=== PATIENT | female | born 1985 | race Asian ===

== ENCOUNTER 2018-04-26 17:56 | Emergency (ER) | payer MEDICAID, OTHER ==
[~2018-04-26] VITALS: Ht 160 cm; Wt 56.8 kg
[~2018-04-26 17:56] MED LIST: BENZ1TAB10 PO; DIVA500T35 PO; LITH8SOL6 PO; RISP2 PO; RISP3 PO; VITAD1000 PO
[2018-04-26 18:46] LABS: BASOPHILS % (AUTO) 0.5 % (0.0-2.0); EOSINOPHILS % (AUTO) 1.4 % (1.0-6.0); HEMATOCRIT 39.3 % (36-46); HEMOGLOBIN 13.4 g/dL (12.0-16.0); LYMPHOCYTES # (AUTO) 1.1 K/uL (1.0-4.8); LYMPHOCYTES % (AUTO) 11.6 % (22.0-44.0); MEAN CORPUSCULAR HEMOGLOBIN 30.9 pg (26.0-34.0); MEAN CORPUSCULAR HGB CONC 34.1 G/dL (31.0-37.0); MEAN CORPUSCULAR VOLUME 91 fL (80-100); MONOCYTES # (AUTO) 0.7 K/uL (0.1-1.0); MONOCYTES % (AUTO) 7.1 % (2.0-9.0); NEUTROPHILS # (AUTO) 7.7 K/uL (1.8-7.7); NEUTROPHILS % (AUTO) 79.4 % (40.0-70.0); PLATELET COUNT (AUTO) 351 K/uL (150-450); RED BLOOD CELL COUNT(AUTO) 4.34 MIL/uL (4.00-5.20)
[2018-04-26 18:53] LABS: ANION GAP 7 mmol/L (8-16); CALCIUM, TOTAL 8.6 mg/dL (8.8-10.5); CARBON DIOXIDE 27 mmol/L (22-29); CHLORIDE 106 mmol/L (98-107); CREATININE 0.87 mg/dL (0.60-1.30); GLOMERULAR FILTR. RATE CALC > 60 mL/min (>60); GLUCOSE,RANDOM 92 mg/dL (70-110); SODIUM SERUM 140 mmol/L (136-145); UREA NITROGEN, BLOOD 19 mg/dL (7-18)
[2018-04-26 18:59] LABS: ALANINE AMINOTRANSFERASE 38 U/L (12-78); ALBUMIN 3.8 g/dL (3.4-5.0); ALKALINE PHOSPHATASE 79 U/L (46-116); ASPARTATE AMINOTRANSFERASE 21 U/L (15-37); BILIRUBIN,TOTAL 0.6 mg/dL (0.1-1.0); TOTAL PROTEIN, SERUM 7.7 g/dL (6.4-8.2)
[2018-04-26 20:32] LABS: VALPROIC ACID 4 mcg/mL (50-100)
[2018-04-27 04:32] VITALS: BP 118/73
== END 2018-04-27 05:42 | disposition home or self-care (01) ==
LOC: EMS 17:57
DX: S02.82XA Fracture of other specified skull and facial bones, left side, initial encounter for closed fracture (principal); F29 Unspecified psychosis not due to a substance or known physiological condition; F15.10 Other stimulant abuse, uncomplicated; Y35.811A Legal intervention involving manhandling, law enforcement official injured, initial encounter; Y93.89 Activity, other specified; Y92.89 Other specified places as the place of occurrence of the external cause; Y99.8 Other external cause status
CPT/HCPCS: 36415; 70450; 70486; 80053; 80164; 82962; 84703; 85025; 99285; G0480

== ENCOUNTER 2021-04-27 22:00 | Inpatient (IN) | payer MEDICARE, MEDICAID ==
[~2021-04-27] VITALS: Ht 160 cm; Wt 63.6 kg
[~2021-04-27 22:00] MED LIST changes: -BENZ1TAB10 PO; +DIVA-112 PO; -DIVA500T35 PO; -LITH8SOL6 PO; -RISP2 PO; -RISP3 PO; -VITAD1000 PO
[2021-04-27] MEDS ORDERED: HALOPERIDOL LACTATE 5 MG/ML VIAL IM ONE (22:45)
[2021-04-27] MEDS ORDERED: DiphenhydrAMINE HCL 50 MG/ML VIAL IM ONE (22:45)
[2021-04-27] MEDS ORDERED: LORazepam 2 MG/ML VIAL IM ONE (22:45)
[2021-04-27 22:52] LABS: BASOPHILS % (AUTO) 0.5 % (0.0-2.0); EOSINOPHILS % (AUTO) 0.6 % (1.0-6.0); HEMATOCRIT 40.8 % (36-46); HEMOGLOBIN 13.4 g/dL (12.0-16.0); LYMPHOCYTES # (AUTO) 1.8 K/uL (1.0-4.8); LYMPHOCYTES % (AUTO) 15.8 % (22.0-44.0); MEAN CORPUSCULAR HEMOGLOBIN 30.6 pg (26.0-34.0); MEAN CORPUSCULAR HGB CONC 32.8 G/dL (31.0-37.0); MEAN CORPUSCULAR VOLUME 93 fL (80-100); MONOCYTES # (AUTO) 0.8 K/uL (0.1-1.0); MONOCYTES % (AUTO) 7.4 % (2.0-9.0); NEUTROPHILS # (AUTO) 8.7 K/uL (1.8-7.7); NEUTROPHILS % (AUTO) 75.7 % (40.0-70.0); PLATELET COUNT (AUTO) 402 K/uL (150-450); RED BLOOD CELL COUNT(AUTO) 4.37 MIL/uL (4.00-5.20); RED CELL DISTRIBUTION WIDTH 13.3 % (11.5-14.5)
[2021-04-27] MEDS ORDERED: HALOPERIDOL 5 MG TABLET PO PRN (23:00)
[2021-04-27 23:02] LABS: ANION GAP 15 mmol/L (8-16); CALCIUM, TOTAL 9.3 mg/dL (8.8-10.5); CARBON DIOXIDE 21 mmol/L (22-29); CHLORIDE 103 mmol/L (98-107); CREATININE 1.23 mg/dL (0.60-1.30); GLOMERULAR FILTR. RATE CALC 50 mL/min (>60); GLUCOSE,RANDOM 89 mg/dL (70-110); POTASSIUM 4.1 mmol/L (3.5-5.1); SODIUM SERUM 139 mmol/L (136-145); UREA NITROGEN, BLOOD 17 mg/dL (7-18)
[2021-04-27 23:08] LABS: ALANINE AMINOTRANSFERASE 24 U/L (12-78); ALBUMIN 4.5 g/dL (3.4-5.0); ALKALINE PHOSPHATASE 88 U/L (46-116); ASPARTATE AMINOTRANSFERASE 18 U/L (15-37); TOTAL PROTEIN, SERUM 7.8 g/dL (6.4-8.2)
[2021-04-27 23:25] LABS: COVID AG,FIA SOURCE NASOPHARYNGEAL
[2021-04-27 23:37] LABS: VALPROIC ACID < 3 mcg/mL (50-100)
[2021-04-28 03:30] VITALS: BP 101/61
[2021-04-28 03:32] VITALS: BP 101/61
[2021-04-28] MEDS ORDERED: DOCUSATE SODIUM 100 MG CAPSULE PO PRN (06:30)
[2021-04-28] MEDS ORDERED: MAG HYDROX/AL HYDROX/SIMETH ES 30 ML SUSPENSION UDCUP PO PRN (06:30)
[2021-04-28] MEDS ORDERED: LOPERAMIDE HCL 2 MG CAPSULE PO PRN (06:30)
[2021-04-28] MEDS ORDERED: ONDANSETRON HCL 4 MG TABLET PO PRN (06:30)
[2021-04-28] MEDS ORDERED: CloNIDine HCL 0.1 MG TABLET PO PRN (06:30)
[2021-04-28] MEDS ORDERED: ALBUTEROL SULFATE HFA 90 MCG/PUFF 8 GM INHALER IH PRN (06:30)
[2021-04-28] MEDS ORDERED: IBUPROFEN 600 MG TABLET PO PRN (06:30)
[2021-04-28] MEDS ORDERED: OMEPRAZOLE 20 MG CAPSULE PO PRN (06:30)
[2021-04-28] MEDS ORDERED: BACITRACIN 28 GM OINTMENT TP PRN (06:30)
[2021-04-28] MEDS ORDERED: MAGNESIUM HYDROXIDE SUSPENSION 30 ML UDCUP PO PRN (06:30)
[2021-04-28] MEDS ORDERED: PETROLATUM,WHITE 28 GM JELLY TP PRN (06:30)
[2021-04-28] MEDS ORDERED: ACETAMINOPHEN 325 MG TABLET PO PRN (06:30)
[2021-04-28] MEDS ORDERED: BENZOCAINE/MENTHOL LOZENGE PO PRN (06:30)
[2021-04-28 08:12] VITALS: BP 111/69
[2021-04-28 16:14] VITALS: BP 120/71
[2021-04-28] MEDS: DIVALPROEX SODIUM 500 MG DR TABLET PO SCH (16:57)
[2021-04-28] MEDS: RisperiDONE 1 MG TABLET PO SCH (17:00)
[2021-04-29 00:08] VITALS: BP 122/68
[2021-04-29 08:13] VITALS: BP 126/66
[2021-04-29] MEDS: RisperiDONE 1 MG TABLET PO SCH ×2 (09:00→16:47)
[2021-04-29] MEDS: DIVALPROEX SODIUM 500 MG DR TABLET PO SCH ×2 (09:27→16:46)
[2021-04-29 16:19] VITALS: BP 102/58
[2021-04-30 05:31] VITALS: BP 110/70
[2021-04-30] MEDS: DIVALPROEX SODIUM 500 MG DR TABLET PO SCH ×2 (08:14→16:40)
[2021-04-30 08:22] VITALS: BP 116/69
[2021-04-30] MEDS: RisperiDONE 1 MG TABLET PO SCH ×2 (08:29→16:40)
[2021-04-30 16:09] VITALS: BP 103/60
[2021-04-30] MEDS: ZOLPIDEM TARTRATE 10 MG TABLET PO PRN (20:45)
[2021-05-01 00:09] VITALS: BP_SYST 116; BP_SYST 126; BP_DIAS 63; BP_DIAS 69
[2021-05-01 08:24] VITALS: BP 128/69
[2021-05-01] MEDS: RisperiDONE 1 MG TABLET PO SCH ×3 (08:50→16:19)
[2021-05-01] MEDS: DIVALPROEX SODIUM 500 MG DR TABLET PO SCH ×2 (08:50→16:13)
[2021-05-01] MEDS: LORazepam 2 MG TABLET PO PRN (09:10)
[2021-05-01 16:09] VITALS: BP 102/54
[2021-05-01] MEDS: ZOLPIDEM TARTRATE 10 MG TABLET PO PRN (20:18)
[2021-05-02 00:29] VITALS: BP 102/64
[2021-05-02 08:12] VITALS: BP 106/72
[2021-05-02] MEDS: DIVALPROEX SODIUM 500 MG DR TABLET PO SCH ×2 (09:00→17:11)
[2021-05-02] MEDS: RisperiDONE 1 MG TABLET PO SCH ×2 (09:00→17:00)
[2021-05-02] MEDS: LORazepam 2 MG TABLET PO PRN ×2 (09:45→19:09)
[2021-05-02 16:15] VITALS: BP 102/63
[2021-05-02] MEDS: ZOLPIDEM TARTRATE 10 MG TABLET PO PRN (20:58)
[2021-05-03 05:28] VITALS: BP 105/62
[2021-05-03 08:15] VITALS: BP 115/70
[2021-05-03] MEDS: RisperiDONE 1 MG TABLET PO SCH ×2 (09:00→17:00)
[2021-05-03] MEDS: DIVALPROEX SODIUM 500 MG DR TABLET PO SCH ×2 (09:05→16:40)
[2021-05-03 16:10] VITALS: BP 131/80
[2021-05-03 16:18] VITALS: BP 125/68
[2021-05-03] MEDS: LORazepam 2 MG TABLET PO PRN (17:25)
[2021-05-03] MEDS: ZOLPIDEM TARTRATE 10 MG TABLET PO PRN (20:51)
[2021-05-04 03:20] VITALS: BP 128/83
[2021-05-04] MEDS: LORazepam 2 MG TABLET PO PRN ×2 (03:25→18:36)
[2021-05-04 07:43] VITALS: BP 107/68
[2021-05-04 08:22] VITALS: BP 107/68
[2021-05-04] MEDS: DIVALPROEX SODIUM 500 MG DR TABLET PO SCH ×2 (08:34→16:31)
[2021-05-04] MEDS: RisperiDONE 1 MG TABLET PO SCH ×2 (08:34→16:31)
[2021-05-04 17:00] VITALS: BP 100/69
[2021-05-04 18:36] VITALS: BP 113/76
[2021-05-04] MEDS: ZOLPIDEM TARTRATE 10 MG TABLET PO PRN (21:04)
[2021-05-05 05:39] VITALS: BP 116/72
[2021-05-05 08:09] VITALS: BP 104/61
[2021-05-05] MEDS: RisperiDONE 1 MG TABLET PO SCH ×3 (08:28→17:00)
[2021-05-05] MEDS: DIVALPROEX SODIUM 500 MG DR TABLET PO SCH ×2 (08:28→16:37)
[2021-05-05] MEDS: LORazepam 2 MG TABLET PO PRN (13:16)
[2021-05-05 16:27] VITALS: BP 108/61
[2021-05-05] MEDS: ZOLPIDEM TARTRATE 10 MG TABLET PO PRN (20:50)
[2021-05-06 01:12] VITALS: BP 105/60
[2021-05-06] MEDS: LORazepam 2 MG TABLET PO PRN (05:04)
[2021-05-06 08:30] VITALS: BP 106/66
[2021-05-06] MEDS: RisperiDONE 1 MG TABLET PO SCH ×2 (09:00→09:09)
[2021-05-06] MEDS: DIVALPROEX SODIUM 500 MG DR TABLET PO SCH (09:09)
== END 2021-05-06 13:05 | disposition home or self-care (01) | DRG 885 ==
LOC: EMS 22:02 → B2X 22:58
PROVIDERS: ADMIT Psychiatry & Neurology Psychiatry; ATTEND Psychiatry & Neurology Psychiatry
DX: F25.9 Schizoaffective disorder, unspecified (principal); F41.9 Anxiety disorder, unspecified; G47.00 Insomnia, unspecified; K59.00 Constipation, unspecified; Z20.822 Contact with and (suspected) exposure to COVID-19; F15.10 Other stimulant abuse, uncomplicated; F12.90 Cannabis use, unspecified, uncomplicated
CPT/HCPCS: 80053; 80164; 85025; 99291; G0480; J1200; J1630; J2060; Q0162

== ENCOUNTER 2022-05-16 18:18 | Inpatient (IN) | payer OTHER ==
[~2022-05-16] VITALS: Ht 165.1 cm; Wt 80.2 kg
[2022-05-16] MEDS ORDERED: HALOPERIDOL LACTATE 5 MG/ML VIAL IM ONE (18:30)
[2022-05-16] MEDS ORDERED: DiphenhydrAMINE HCL 50 MG/ML VIAL IM ONE (18:30)
[2022-05-16] MEDS ORDERED: LORazepam 2 MG/ML VIAL IM ONE (18:30)
[2022-05-16 20:07] LABS: BASOPHILS % (AUTO) 0.7 % (0.0-2.0); EOSINOPHILS % (AUTO) 0 % (1.0-6.0); HEMATOCRIT 36.8 % (36-46); HEMOGLOBIN 12.6 g/dL (12.0-16.0); LYMPHOCYTES # (AUTO) 0.8 K/uL (1.0-4.8); LYMPHOCYTES % (AUTO) 3.9 % (22.0-44.0); MEAN CORPUSCULAR HEMOGLOBIN 30.9 pg (26.0-34.0); MEAN CORPUSCULAR HGB CONC 34.3 G/dL (31.0-37.0); MEAN CORPUSCULAR VOLUME 90 fL (80-100); MONOCYTES # (AUTO) 1.6 K/uL (0.1-1.0); MONOCYTES % (AUTO) 7.5 % (2.0-9.0); NEUTROPHILS # (AUTO) 18.4 K/uL (1.8-7.7); NEUTROPHILS % (AUTO) 87.9 % (40.0-70.0); PLATELET COUNT (AUTO) 326 K/uL (150-450); RED BLOOD CELL COUNT(AUTO) 4.09 MIL/uL (4.00-5.20)
[2022-05-16 20:16] LABS: PLATELET MORPHOLOGY COMMENT GIANT PLTS PRESENT
[2022-05-16 20:30] LABS: ALANINE AMINOTRANSFERASE 76 U/L (12-78); ALBUMIN 3.6 g/dL (3.4-5.0); ALKALINE PHOSPHATASE 73 U/L (46-116); ANION GAP 13 mmol/L (8-16); ASPARTATE AMINOTRANSFERASE 119 U/L (15-37); BILIRUBIN,TOTAL 2.6 mg/dL (0.1-1.0); CALCIUM, TOTAL 8.6 mg/dL (8.8-10.5); CARBON DIOXIDE 23 mmol/L (22-29); CHLORIDE 100 mmol/L (98-107); CREATININE 0.85 mg/dL (0.60-1.30); GLUCOSE,RANDOM 100 mg/dL (70-110); SODIUM SERUM 136 mmol/L (136-145); THYROID STIMULATING HORMONE 0.79 uIU/mL (0.36-3.74); UREA NITROGEN, BLOOD 16 mg/dL (7-18)
[2022-05-16 20:31] LABS: GLOMERULAR FILTR. RATE CALC > 60 mL/min (>60)
[2022-05-16 20:32] LABS: POTASSIUM 2.9 mmol/L (3.5-5.1)
[2022-05-16] MEDS ORDERED: SODIUM CHLORIDE 0.9% 2,350 ML IV ONE (23:45)
[2022-05-16] MEDS ORDERED: 0.9% SODIUM CHLORIDE 10 ML SYRINGE IVP PRN (23:45)
[2022-05-17 00:27] LABS: LACTIC ACID 0.6 mmol/L (0.4-2.0)
[2022-05-17] MEDS: POTASSIUM CHL 10 MEQ/WATER 50 ML IV SCH ×2 (00:32→01:14)
[2022-05-17 00:40] LABS: CREATINE KINASE, TOTAL ONLY 3991 U/L (26-192); HCG,QUANTITATIVE < 1 mIU/mL (0-6)
[2022-05-17 01:27] LABS: COVID AG,FIA SOURCE NASOPHARYNGEAL
[2022-05-17 01:50] LABS: INFLUENZA TYPE A NEGATIVE FOR TYPE A (NEGATIVE); INFLUENZA TYPE B NEGATIVE FOR TYPE B (NEGATIVE)
[2022-05-17] MEDS ORDERED: CefTRIAXone 1 GM/DEXTROSE 50 ML IV ONE (02:45)
[2022-05-17] MEDS ORDERED: AZITHROMYCIN 500 MG/NS 250 ML IV ONE (02:45)
[2022-05-17] MEDS ORDERED: MORPHINE SULFATE 2 MG/ML SYRINGE IVP PRN (03:15)
[2022-05-17] MEDS ORDERED: ONDANSETRON HCL 4 MG/2 ML VIAL IVP PRN (03:15)
[2022-05-17 03:37] LABS: BILIRUBIN,TOTAL 2.2 mg/dL (0.1-1.0)
[2022-05-17 04:16] LABS: SALICYLATE 0.3 mg/dL (2.8-20.0)
[2022-05-17 04:21] LABS: ACETAMINOPHEN < 2 mcg/mL (10-30)
[2022-05-17] MEDS: RINGERS SOLUTION,LACTATED 1,000 ML IV SCH ×2 (04:29→14:14)
[2022-05-17] MEDS ORDERED: POTASSIUM CHLORIDE 20 MEQ ER TABLET PO PRN (06:45)
[2022-05-17] MEDS: POTASSIUM CHL 10 MEQ/WATER 50 ML IV PRN ×4 (06:58→11:27)
[2022-05-17 20:22] VITALS: BP 111/67
[2022-05-17 23:14] LABS: APPEARANCE,URINE HAZY (CLEAR); BILIRUBIN,URINE NEGATIVE (NEGATIVE); GLUCOSE, URINE (UA) NEGATIVE (NEGATIVE); KETONES,URINE =>150 mg/dL (NEGATIVE); LEUKOCYTE ESTERASE ,URINE NEGATIVE (NEGATIVE); NITRATE,URINE NEGATIVE (NEGATIVE); OCCULT BLOOD,URINE NEGATIVE (NEGATIVE); PH,URINE 6.5 (5.0-8.0); PROTEIN,URINE 30-70 mg/dL (NEGATIVE)
[2022-05-17 23:21] LABS: AMPHET/METH SCREEN,URINE POSITIVE (NEGATIVE); BARBITURATE SCREEN, URINE NEGATIVE (NEGATIVE); BENZODIAZEPINES SCREEN,URINE NEGATIVE (NEGATIVE); CANNABINOID SCREEN,URINE NEGATIVE (NEGATIVE); COCAINE SCREEN,URINE NEGATIVE (NEGATIVE); METHADONE SCREEN, URINE NEGATIVE (NEGATIVE); OPIATE SCREEN,URINE NEGATIVE (NEGATIVE); PHENCYCLIDINE SCREEN,URINE NEGATIVE (NEGATIVE)
[2022-05-18] VITALS (7 sets, daily range): BP systolic 93–127; BP diastolic 55–76
[2022-05-18] MEDS: RINGERS SOLUTION,LACTATED 1,000 ML IV SCH ×3 (02:50→22:30)
[2022-05-18] MEDS: CefTRIAXone 1 GM/DEXTROSE 50 ML IV SCH (04:05)
[2022-05-18] MEDS: AZITHROMYCIN 500 MG/NS 250 ML IV SCH (04:59)
[2022-05-18 06:00] LABS: BASOPHILS % (AUTO) 0.6 % (0.0-2.0); EOSINOPHILS % (AUTO) 5.3 % (1.0-6.0); HEMATOCRIT 32.1 % (36-46); HEMOGLOBIN 10.9 g/dL (12.0-16.0); LYMPHOCYTES # (AUTO) 1.5 K/uL (1.0-4.8); LYMPHOCYTES % (AUTO) 19.7 % (22.0-44.0); MEAN CORPUSCULAR HEMOGLOBIN 31.4 pg (26.0-34.0); MEAN CORPUSCULAR VOLUME 92 fL (80-100); MONOCYTES # (AUTO) 0.6 K/uL (0.1-1.0); MONOCYTES % (AUTO) 8.2 % (2.0-9.0); NEUTROPHILS # (AUTO) 5.2 K/uL (1.8-7.7); NEUTROPHILS % (AUTO) 66.2 % (40.0-70.0); PLATELET COUNT (AUTO) 255 K/uL (150-450); RED BLOOD CELL COUNT(AUTO) 3.47 MIL/uL (4.00-5.20); RED CELL DISTRIBUTION WIDTH 12.8 % (11.5-14.5)
[2022-05-18 06:10] LABS: ANION GAP 12 mmol/L (8-16); CALCIUM, TOTAL 7.5 mg/dL (8.8-10.5); CARBON DIOXIDE 19 mmol/L (22-29); CHLORIDE 106 mmol/L (98-107); CREATININE 0.55 mg/dL (0.60-1.30); GLUCOSE,RANDOM 66 mg/dL (70-110); POTASSIUM 3.4 mmol/L (3.5-5.1); SODIUM SERUM 137 mmol/L (136-145); UREA NITROGEN, BLOOD 8 mg/dL (7-18)
[2022-05-18 06:12] LABS: GLOMERULAR FILTR. RATE CALC > 60 mL/min (>60)
[2022-05-18] MEDS ORDERED: MAGNESIUM OXIDE 400 MG TABLET PO ONE (07:00)
[2022-05-19 04:00] VITALS: BP 110/73
[2022-05-19] MEDS: CefTRIAXone 1 GM/DEXTROSE 50 ML IV SCH (05:26)
[2022-05-19] MEDS: AZITHROMYCIN 500 MG/NS 250 ML IV SCH (06:44)
[2022-05-19 07:50] VITALS: BP 121/74
[2022-05-19] MEDS: RINGERS SOLUTION,LACTATED 1,000 ML IV SCH (09:08)
[2022-05-19 10:47] LABS: ANION GAP 7 mmol/L (8-16); CALCIUM, TOTAL 8.3 mg/dL (8.8-10.5); CARBON DIOXIDE 25 mmol/L (22-29); CHLORIDE 107 mmol/L (98-107); CREATININE 0.47 mg/dL (0.60-1.30); GLUCOSE,RANDOM 96 mg/dL (70-110); POTASSIUM 3.7 mmol/L (3.5-5.1); SODIUM SERUM 139 mmol/L (136-145); UREA NITROGEN, BLOOD 3 mg/dL (7-18)
[2022-05-19 10:49] LABS: GLOMERULAR FILTR. RATE CALC > 60 mL/min (>60)
[2022-05-19 11:45] VITALS: BP 115/62
[2022-05-19 13:01] LABS: CREATINE KINASE, TOTAL ONLY 1084 U/L (26-192)
== END 2022-05-19 15:00 | disposition left against medical advice (07) | DRG 871 ==
LOC: EMS 18:28 → 5N 05-17 18:39
PROVIDERS: ADMIT Internal Medicine; ATTEND Internal Medicine
DX: A41.9 Sepsis, unspecified organism (principal); J18.9 Pneumonia, unspecified organism; G92.9 Unspecified toxic encephalopathy; R45.851 Suicidal ideations; F41.9 Anxiety disorder, unspecified; Z20.822 Contact with and (suspected) exposure to COVID-19; E87.6 Hypokalemia; E80.6 Other disorders of bilirubin metabolism; E83.42 Hypomagnesemia; Z88.8 Allergy status to other drugs, medicaments and biological substances; Z79.899 Other long term (current) drug therapy; Z91.19 Patient's noncompliance with other medical treatment and regimen
CPT/HCPCS: 51702; 71045; 76705; 80048; 80053; 81003; 82247; 82248; 82550; 83605; 83735; 84132; 84436; 84443; 84702; 85025; 87040; 87081; 87449; 87804; 93005; 99285; G0480; G0481; J0456; J0696; J3480; J7030; J7120; 36415-L1; 36415-TC; U0003